=== PATIENT | male | born 1975 | race Caucasian/White ===

== ENCOUNTER 2017-02-18 11:44 | Emergency (ER) | payer OTHER ==
[2017-02-18] MEDS ORDERED: Lidocaine 1% 20 ML MDV ONE (11:54)
[2017-02-18] MEDS ORDERED: Bacitracin Zinc 1 Packet ONE (12:10)
== END 2017-02-18 12:24 | disposition home or self-care (01) ==
LOC: BURERS 11:44
DX: S61.011A Laceration without foreign body of right thumb without damage to nail, initial encounter (principal); F17.210 Nicotine dependence, cigarettes, uncomplicated; W45.8XXA Other foreign body or object entering through skin, initial encounter
CPT/HCPCS: 12001; J2001